=== PATIENT | male | born 1995 | race Caucasian/White ===

== ENCOUNTER 2017-03-30 16:10 | Emergency (ER) | payer BC ==
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
== END 2017-03-30 16:59 | disposition disaster alternative care site (69) ==
LOC: GACC 16:10
PROC: 2W3CX1Z Immobilization of Right Lower Arm using Splint (ICD-10-PCS; principal; 2017-03-30)
DX: S52.571A Other intraarticular fracture of lower end of right radius, initial encounter for closed fracture (principal); S80.212A Abrasion, left knee, initial encounter; V28.4XXA Motorcycle driver injured in noncollision transport accident in traffic accident, initial encounter